=== PATIENT | female | born 1985 | race Caucasian/White ===

== ENCOUNTER → 2025-08-17 13:22 | Outpatient (REF) | payer BC, SELFPAY | LOC: PNTC 13:22 | PROVIDERS: ATTENDING PHYSICIAN Student in an Organized Health Care Education/Training Program | DX: O09.522 Supervision of elderly multigravida, second trimester (principal); O11.2 Pre-existing hypertension with pre-eclampsia, second trimester; O99.212 Obesity complicating pregnancy, second trimester | CPT/HCPCS: 76805 ==

== ENCOUNTER → 2025-09-14 09:31 | Outpatient (REF) | payer BC, SELFPAY | LOC: PNTC 09:31 | PROVIDERS: ATTENDING PHYSICIAN Student in an Organized Health Care Education/Training Program | DX: O99.212 Obesity complicating pregnancy, second trimester (principal); O09.892 Supervision of other high risk pregnancies, second trimester; O09.522 Supervision of elderly multigravida, second trimester; Z87.59 Personal history of other complications of pregnancy, childbirth and the puerperium | CPT/HCPCS: 76811; 76817 ==

== ENCOUNTER → 2025-10-05 11:54 | Outpatient (REF) | payer BC, SELFPAY | LOC: PNTC 11:54 | PROVIDERS: ATTENDING PHYSICIAN Student in an Organized Health Care Education/Training Program | DX: O09.523 Supervision of elderly multigravida, third trimester (principal) | CPT/HCPCS: 76815 ==